=== PATIENT | male | born 1980 | race African-American/Black ===

== ENCOUNTER 2022-04-25 10:01 | Day surgery (SDC) | payer OTHER ==
[2022-04-22 15:48] VITALS: BMI 27.1
[2022-04-25] MEDS ORDERED: MIDAZOLAM HCL 2 MG/2 ML SINGLE DOSE VIAL ONE (12:02)
[2022-04-25] MEDS ORDERED: DEXAMETHASONE SOD PHOSPHATE 10 MG/1 ML VIAL ONE (12:03)
[2022-04-25] MEDS ORDERED: ROPIVACAINE HCL/PF 100 MG/20 ML VIAL ONE (12:03)
[2022-04-25] MEDS ORDERED: FENTANYL CITRATE/PF 50 MCG/ML VIAL ONE (12:03)
[2022-04-25] MEDS ORDERED: ceFAZolin SODIUM 1 GM VIAL ONE (12:52)
[2022-04-25] MEDS ORDERED: DEXAMETHASONE SOD PHOSPHATE 4 MG/1 ML VIAL ONE (12:52)
[2022-04-25] MEDS ORDERED: ONDANSETRON 4 MG/2 ML VIAL ONE (12:52)
[2022-04-25] MEDS ORDERED: PROPOFOL 40 ML ONE (12:53)
[2022-04-25] MEDS ORDERED: SUCCINYLCHOLINE CHLORIDE 200 MG/10 ML SYRINGE ONE (12:53)
[2022-04-25] MEDS ORDERED: TRANEXAMIC ACID 1000 MG/10 ML VIAL ONE (13:22)
[2022-04-25] MEDS ORDERED: PROPOFOL 20 ML ONE ×2 (14:13→15:03)
[2022-04-25] MEDS ORDERED: ONDANSETRON 4 MG/2 ML VIAL IVPUSH PRN (15:34)
[2022-04-25] MEDS ORDERED: oxyCODONE HCL 5 MG TABLET PO PRN (15:34)
[2022-04-25] MEDS ORDERED: IBUPROFEN 800 MG/8 ML IJ IVPB PRN (15:34)
[2022-04-25] MEDS ORDERED: LACTATED RINGERS SOLUTION 1,000 ML IV SCH (15:45)
[2022-04-25 16:06] VITALS: RESP 18
[2022-04-25 17:58] VITALS: TEMP 98
[2022-04-25 18:00] VITALS: BP 123/72; PULSE 66
== END 2022-04-25 17:35 | disposition home or self-care (01) ==
LOC: FASU 10:01
PROVIDERS: ATTEND Orthopaedic Surgery Sports Medicine
PROC: 0RNJ4ZZ Release Right Shoulder Joint, Percutaneous Endoscopic Approach (ICD-10-PCS; 2022-04-25)
PROC: 0LQ14ZZ Repair Right Shoulder Tendon, Percutaneous Endoscopic Approach (ICD-10-PCS; principal; 2022-04-25 13:12)
PROC: 0LU14KZ Supplement Right Shoulder Tendon with Nonautologous Tissue Substitute, Percutaneous Endoscopic Approach (ICD-10-PCS; 2022-04-25 13:12)
DX: M75.101 Unspecified rotator cuff tear or rupture of right shoulder, not specified as traumatic (principal)
CPT/HCPCS: 94760; C1713; J1100